=== PATIENT | male | born 1975 | race Caucasian/White ===

== ENCOUNTER 2022-06-13 07:27 | Outpatient (CLI) | payer BC, SELFPAY ==
[2022-06-13 12:03] LABS: Vitamin D 25 Hydroxy* 58 ng/mL (30-80)
[2022-06-13 12:26] LABS: Albumin* 4.5 g/dL (3.3-5.0); Chloride* 99 mmol/L (96-114); Sodium* 136 mmol/L (135-149)
[2022-06-13 12:27] LABS: Potassium* 5.3 mmol/L (3.6-5.1)
[2022-06-13 12:29] LABS: Alkaline Phosphatase* 93 U/L (40-150); Aspartate Amino Transferase* 65 U/L (12-35); Bilirubin Total* 0.6 mg/dL (0.1-1.5); Blood Urea Nitrogen* 16 mg/dL (5-24); Carbon Dioxide* 28 mmol/L (20-32); Cholesterol* 209 mg/dL (90-199); Creatinine* 1.1 mg/dL (0.5-1.5); Estimated Glomerular Filt Rate 84 ml/min; Glucose* 108 mg/dL (60-115); Total Protein* 7.1 g/dL (6.0-8.3)
[2022-06-13 12:30] LABS: Alanine Aminotransferase* 85 U/L (4-50); Calcium* 9.4 mg/dL (8.4-10.6); HDL Cholesterol* 31 mg/dL (>=40); LDL Cholesterol Calculated 75 mg/dL (<100)
[2022-06-13 12:42] LABS: Triglycerides* 517 mg/dL (40-149)
== END 2022-06-13 07:28 | disposition home or self-care (01) ==
LOC: NFLDREF 07:28
PROVIDERS: PCP Family Medicine; Visit Provider Family Medicine
DX: E55.9 Vitamin D deficiency, unspecified (principal); E78.5 Hyperlipidemia, unspecified
CPT/HCPCS: 80053; 80061; 82306

== ENCOUNTER 2022-06-21 16:03 | Outpatient (CLI) | payer BC, SELFPAY ==
[2022-06-28 23:58] LABS: HSV 1 Subtype by PCR Detected; HSV 2 Subtype by PCR Not Detected; Herpes Simplex Subtype Source Not Provided
== END 2022-06-21 16:04 | disposition home or self-care (01) ==
LOC: LKVREF 16:05
PROVIDERS: PCP Family Medicine; Visit Provider Student in an Organized Health Care Education/Training Program
DX: N50.89 Other specified disorders of the male genital organs (principal)
CPT/HCPCS: 87529

== ENCOUNTER 2023-09-07 11:42 | Outpatient (CLI) | payer BC, SELFPAY | END 2023-09-07 11:43 | disposition home or self-care (01) | PROVIDERS: PCP Family Medicine; Visit Provider Family Medicine | DX: Z00.00 Encounter for general adult medical examination without abnormal findings (principal); E78.5 Hyperlipidemia, unspecified; M10.9 Gout, unspecified | CPT/HCPCS: 80048; 80061; 80076 ==

== ENCOUNTER 2024-01-25 07:55 | Outpatient (CLI) | payer BC, SELFPAY ==
--- NOTE | 2024-01-25 08:56 | W.ANESCHARGE ---
Anesthesia Charges Start Date/Time Anesthesia Start Date: 01/25/24 Anesthesia Start Time: 08:24 Stop Date/Time Anesthesia Stop Date: 01/25/24 Anesthesia Stop Time: 08:49
== END 2024-01-25 07:56 | disposition home or self-care (01) ==
LOC: OP CLINIC 07:55
PROVIDERS: PCP Family Medicine; Visit Provider Internal Medicine
DX: Z12.11 Encounter for screening for malignant neoplasm of colon (principal); K57.30 Diverticulosis of large intestine without perforation or abscess without bleeding
CPT/HCPCS: 00812; 45378; J2704

== ENCOUNTER 2024-10-08 15:23 | Outpatient (CLI) | payer BC, SELFPAY | END 2024-10-08 15:24 | disposition home or self-care (01) | PROVIDERS: PCP Family Medicine; Visit Provider Internal Medicine | DX: E78.5 Hyperlipidemia, unspecified (principal); R79.89 Other specified abnormal findings of blood chemistry | CPT/HCPCS: 80053; 80061 ==

== ENCOUNTER 2024-11-25 08:10 | Outpatient (CLI) | payer BC, SELFPAY | END 2024-11-25 08:11 | disposition home or self-care (01) | LOC: NFLDREF 11-26 02:29 | PROVIDERS: PCP Internal Medicine; Referring Provider Internal Medicine; Visit Provider Internal Medicine | DX: E78.5 Hyperlipidemia, unspecified (principal) | CPT/HCPCS: 80061 ==

== ENCOUNTER 2024-12-12 10:25 | Outpatient (CLI) | payer BC, SELFPAY | END 2024-12-12 10:26 | disposition home or self-care (01) | LOC: NFLDREF 12-16 08:19 | PROVIDERS: PCP Internal Medicine; Referring Provider Internal Medicine; Visit Provider Internal Medicine | DX: M79.672 Pain in left foot (principal) | CPT/HCPCS: 84550 ==

== ENCOUNTER 2025-04-16 07:25 | Outpatient (CLI) | payer BC, SELFPAY | END 2025-04-16 07:26 | disposition home or self-care (01) | LOC: NFLDREF 04-20 14:28 | PROVIDERS: PCP Internal Medicine; Referring Provider Internal Medicine; Visit Provider Internal Medicine | DX: E78.2 Mixed hyperlipidemia (principal); I10 Essential (primary) hypertension; M10.9 Gout, unspecified | CPT/HCPCS: 80053; 80061; 84550 ==

== ENCOUNTER 2025-06-11 09:06 | Outpatient (CLI) | payer BC, SELFPAY ==
--- NOTE | 2025-06-11 09:15 | CRLHL7_ITS ---
For Patients: As a result of the Century Cures Act, medical imaging exams and procedure reports are released immediately into your electronic medical record. You may view this report before your referring provider. If you have questions, please contact your health care provider. INDICATION: Low back pain. Lumbar radiculopathy. TECHNIQUE: Noncontrast sagittal and axial T1, T2, and sagittal STIR sequences are provided. No comparisons. FINDINGS: The overall stature, alignment and intrinsic marrow signal of the lumbar spine is within normal limits. Conus is normal. L1-2, L2-3: Unremarkable. L3-4: Mild broad-based posterior disc bulge extends into the left neural foramen contacts the exiting left L3 nerve root laterally. No central canal or right foraminal narrowing. L4-5: There is a left posterior paracentral disc extrusion with caudal migration that extends 6 millimeters beyond the posterior vertebral body margin and extends caudally a distance of 10 millimeters. There is resultant severe left lateral recess narrowing with compression of the traversing left L5 nerve root. Moderate central canal narrowing with minimal bilateral foraminal narrowing. L5-S1: Mild broad-based posterior disc bulge results in no central canal narrowing. Associated facet arthropathy results in moderate left foraminal narrowing with compression of the exiting left L5 nerve root. Mild right foraminal narrowing IMPRESSION: 1. Large left posterior paracentral disc extrusion with caudal migration at L4-5 resulting in severe left lateral recess narrowing with compression of the traversing left L5 nerve root and moderate central canal narrowing. 2. Moderate left L5-S1 foraminal narrowing. 3. Leftward eccentric disc bulge at L3-4 contacting the exiting left L3 nerve root laterally. Dictated by Gui Easley MD @ 06/12/2025 10:18:02 AM (Electronically Signed)
== END 2025-06-11 09:07 | disposition home or self-care (01) ==
LOC: MRI 09:07
PROVIDERS: PCP Internal Medicine; Visit Provider Family Medicine
DX: M54.16 Radiculopathy, lumbar region (principal); M51.26 Other intervertebral disc displacement, lumbar region; M51.27 Other intervertebral disc displacement, lumbosacral region
CPT/HCPCS: 72148

== ENCOUNTER 2025-07-07 08:16 | Outpatient (CLI) | payer BC, SELFPAY | END 2025-07-07 08:17 | disposition home or self-care (01) | LOC: INJ CL 08:17 | PROVIDERS: PCP Internal Medicine; Visit Provider Family Medicine | DX: M54.16 Radiculopathy, lumbar region (principal); M51.26 Other intervertebral disc displacement, lumbar region | CPT/HCPCS: 64483; J1100; Q9966 ==

== ENCOUNTER 2025-08-06 14:47 | Outpatient (CLI) | payer BC, SELFPAY ==
--- NOTE | 2025-09-08 12:08 | W.PM.SLEEP ---
Sleep Study Details Details Interpreting Provider: Tessa Date of Sleep Study: 08/06/25 Sleep Study Details: STUDY TYPE:? [Home unattended ? BMI:? 31.75 ORDERING PROVIDER:? Kira INDICATION:? Concern for sleep apnea ? SLEEP SUMMARY:? 491 minutes monitored RESPIRATORY SUMMARY:? AHI 24.3 Low oxygen 81 4.5% of study oxygen less than 90% Snoring 94.2% PERIODIC LIMB MOVEMENTS OF SLEEP:? Not recorded CARDIAC:? Range 51-112, mean 81.1 beats per minute IMPRESSION:? Moderate obstructive sleep apnea RECOMMENDATION: Treatment options include CPAP or dental appliance.
== END 2025-08-06 14:48 | disposition home or self-care (01) ==
LOC: SLEEP 14:47
PROVIDERS: PCP Internal Medicine; Visit Provider Internal Medicine
DX: G47.33 Obstructive sleep apnea (adult) (pediatric) (principal)
CPT/HCPCS: 95806

== ENCOUNTER 2025-10-06 07:45 | Outpatient (CLI) | payer BC, SELFPAY | END 2025-10-06 07:46 | disposition home or self-care (01) | LOC: NFLDREF 10-11 17:01 | PROVIDERS: PCP Internal Medicine; Referring Provider Internal Medicine; Visit Provider Internal Medicine | DX: E11.9 Type 2 diabetes mellitus without complications (principal); I10 Essential (primary) hypertension; E78.2 Mixed hyperlipidemia; R79.89 Other specified abnormal findings of blood chemistry | CPT/HCPCS: 80053; 80061; 84550 ==